=== PATIENT | female | born 1950 | race Caucasian/White ===

== ENCOUNTER → 2019-05-01 | Outpatient (CLI) | payer MEDICARE | END | disposition home or self-care (01) | LOC: LAB SHORT 12:14 → LAB 12:14 | DX: R35.0 Frequency of micturition (principal) | CPT/HCPCS: 87086 ==

== ENCOUNTER → 2022-05-28 | Outpatient (CLI) | payer MEDICARE | LOC: PLD 14:37 → LAB SHORT 14:37 | DX: D48.5 Neoplasm of uncertain behavior of skin (principal) | CPT/HCPCS: 88305 ==

== ENCOUNTER → 2022-07-29 | Outpatient (CLI) | payer MEDICARE | END | disposition home or self-care (01) | LOC: LAB 14:37 → LAB SHORT 14:37 | DX: D22.5 Melanocytic nevi of trunk (principal) | CPT/HCPCS: 88305 ==